=== PATIENT | female | born 1950 | race Caucasian/White ===

== ENCOUNTER → 2017-04-11 | Outpatient (CLI) | payer OTHER ==
[~2017-04-11] MED LIST: ADVAIR 250/501 DISK PO; ALBUTEROL; ALEVE220 M2 PO; BUSPAR5 MG PO; DULERA 200 MCG/13 GM IH; FLONASE16 G1 BOTH NARES; LEVOTHYROXINE; MELATONIN10 M2 PO; MULTI-DAY VITA1 EACH PO; NASONEX; NEXIUM40 MG PO; PAXIL30 MG PO; PAXIL40 MG PO; PROAIR HFA8.5 GM IH; SINGULAIR10 MG PO; SYMBICORT60 INHALAT; SYMBICORT60 INHALAT IH; SYNTHROID100 MCG PO; TYLENOL REGULA325 MG PO; VIBRAMYCIN100 MG PO
== END | disposition home or self-care (01) ==
LOC: RAD 07:37
DX: K41.90 Unilateral femoral hernia, without obstruction or gangrene, not specified as recurrent (principal); K80.20 Calculus of gallbladder without cholecystitis without obstruction; K76.89 Other specified diseases of liver; K63.89 Other specified diseases of intestine; R74.8 Abnormal levels of other serum enzymes
CPT/HCPCS: 74177

== ENCOUNTER 2017-09-02 12:03 | Emergency (ER) | payer OTHER ==
[~2017-09-02] VITALS: Ht 160 cm; Wt 76.0 kg
[2017-09-02] MEDS ORDERED: PAXIL40 MG PO (12:53)
[2017-09-02] MEDS ORDERED: TIROSINT75 MCG PO (12:55)
[2017-09-02] MEDS ORDERED: ADVAIR 250/501 DISK IH (12:55)
[2017-09-02 14:58] VITALS: BP 108/59
== END 2017-09-02 14:59 | disposition home or self-care (01) ==
LOC: EME 12:03
DX: S09.90XA Unspecified injury of head, initial encounter (principal); S50.312A Abrasion of left elbow, initial encounter; W01.0XXA Fall on same level from slipping, tripping and stumbling without subsequent striking against object, initial encounter; Y93.K1 Activity, walking an animal; J45.909 Unspecified asthma, uncomplicated; F32.9 Major depressive disorder, single episode, unspecified; K21.9 Gastro-esophageal reflux disease without esophagitis; Z88.5 Allergy status to narcotic agent; Z88.2 Allergy status to sulfonamides; Z88.0 Allergy status to penicillin; Z91.040 Latex allergy status
CPT/HCPCS: 70450; 99281; 99284

== ENCOUNTER 2017-10-14 21:39 | Emergency (ER) | payer OTHER ==
[~2017-10-14] VITALS: Ht 160 cm; Wt 83.1 kg
[~2017-10-14 21:39] MED LIST changes: +ADVAIR 250/501 DISK IH; +TIROSINT75 MCG PO
[2017-10-14 23:15] VITALS: BP 120/76
[2017-10-15] MEDS ORDERED: MOTRIN600 MG PO (00:33)
[2017-10-15] MEDS ORDERED: LORTAB 5-325 M1 EACH PO (00:33)
[2017-10-15] MEDS ORDERED: COLACE100 MG PO (01:18)
== END 2017-10-15 01:40 | disposition home or self-care (01) ==
LOC: EME → EDBD 21:39 → EME 10-15 01:40
PROC: 2W3QX1Z Immobilization of Right Lower Leg using Splint (ICD-10-PCS; principal; 2017-10-15)
DX: S82.831A Other fracture of upper and lower end of right fibula, initial encounter for closed fracture (principal); W01.0XXA Fall on same level from slipping, tripping and stumbling without subsequent striking against object, initial encounter; Y93.K1 Activity, walking an animal; J45.909 Unspecified asthma, uncomplicated; F32.9 Major depressive disorder, single episode, unspecified; K21.9 Gastro-esophageal reflux disease without esophagitis; Z88.5 Allergy status to narcotic agent; Z88.2 Allergy status to sulfonamides; Z88.0 Allergy status to penicillin; Z91.040 Latex allergy status
CPT/HCPCS: 73590; 73610; 99281; 99285

== ENCOUNTER → 2017-10-22 | Outpatient (CLI) | payer MEDICARE, OTHER ==
[~2017-10-22] MED LIST changes: +COLACE100 MG PO; +LORTAB 5-325 M1 EACH PO; +MOTRIN600 MG PO
== END | disposition home or self-care (01) ==
LOC: CDC 12:38
DX: Z01.810 Encounter for preprocedural cardiovascular examination (principal); I44.0 Atrioventricular block, first degree
CPT/HCPCS: 93000